=== PATIENT | male | born 1965 | race Caucasian/White ===

== ENCOUNTER 2017-09-27 00:41 | Inpatient (IN) | payer BC ==
[~2017-09-27] VITALS: Ht 167.6 cm; Wt 82.2 kg
[~2017-09-27 00:41] MED LIST: AMLODIPINE BESYL5 MG PO; ASPIR 8181 M1 PO; ATORVASTATIN CA40 MG PO; BENTYL10 MG PO; CEFDINIR300 MG PO; CITALOPRAM HBR20 MG PO; EXFORGE 10/11 TABLET PO; GLUCOSAMINE CH1 EAC2 PO; HYDROCHLOROTH12.5 M3 PO; MOTRIN600 MG PO; NORCO 7.5/321 TABLET PO; NORTRIPTYLINE H10 MG PO; OMEPRAZOLE40 M1 PO; PERCOCET 10/1 TABLET PO; PREDNISONE20 MG PO; RISPERIDONE0.5 MG PO; TELMISARTAN40 MG PO; VENTOLIN HFA18 GM IH
[2017-09-27 01:01] LABS: APPEARANCE SL.HAZY ((CLEAR)); BILIRUBIN NEGATIVE; BLOOD NEGATIVE; COLOR YELLOW ((YELLOW)); GLUCOSE (STRIP) NEGATIVE; KETONES NEGATIVE; LEUKOCYTES NEGATIVE; NITRITE NEGATIVE; PROTEIN (STRIP) 30; SPECIFIC GRAVITY 1.036 (1.000-1.030); UROBILINOGEN 0.2 MG/DL (0.2-1.0)
[2017-09-27 01:14] LABS: HEMATOCRIT 43.4 % (38.0-50.0); HEMOGLOBIN 14.5 G/DL (12.5-16.6); MCH 29.2 PG (29.0-34.0); MCHC 33.4 G/DL (30.0-36.0); MCV 87.3 FL (86-99); PLATELET COUNT 262 K/uL (156-360); RBC DIS.WIDTH-CV 13.1 % (11.8-14.6); RBC DIS.WIDTH-SD 41.8 % (39-53); RED BLOOD COUNT 4.97 M/uL (4.00-5.50)
[2017-09-27 01:16] LABS: BACTERIA RARE /HPF; EPITHELIAL CELLS RARE /HPF; MUCUS 3+ /LPF; UCUL ADDED? NO; WHITE BLOOD CELLS 0-5 /HPF (0-5)
[2017-09-27 01:25] LABS: ALBUMIN 4.1 g/dL (3.2-4.8); CHLORIDE 102 mEq/L (99-109); POTASSIUM 3.8 mEq/L (3.7-5.4); SODIUM 140 mEq/L (136-147)
[2017-09-27 01:28] LABS: GLUCOSE 144 mg/dL (70-99); TOTAL PROTEIN 7.6 g/dL (6.4-8.3)
[2017-09-27 01:30] LABS: TOTAL BILIRUBIN 0.7 mg/dL (0.0-1.0)
[2017-09-27 01:31] LABS: ALKALINE PHOSPHATASE 105 IU/L (3-129); GFR ESTIMATE (CALCULATED) > 59 mL/min/ (58.99-99999)
[2017-09-27 01:32] LABS: UREA NITROGEN (BUN) 21 mg/dL (9-23)
[2017-09-27 01:33] LABS: AST (GOT) 20 IU/L (2-34)
[2017-09-27 01:34] LABS: ALT (GPT) 35 IU/L (3-49)
[2017-09-27 02:05] LABS: LIPASE 9 U/L (1.0-51.0)
[2017-09-27 05:23] VITALS: BP 154/95
[2017-09-27 07:34] VITALS: BP 139/89
[2017-09-27 11:21] VITALS: BP 131/89
[2017-09-27 15:19] VITALS: BP 123/79
[2017-09-27 19:22] VITALS: BP 114/68
[2017-09-28 08:14] VITALS: BP 126/73
[2017-09-28 08:42] LABS: HEMATOCRIT 35.1 % (38.0-50.0); HEMOGLOBIN 11.3 G/DL (12.5-16.6); MCH 28.3 PG (29.0-34.0); MCHC 32.2 G/DL (30.0-36.0); MCV 87.8 FL (86-99); RBC DIS.WIDTH-CV 12.8 % (11.8-14.6); RBC DIS.WIDTH-SD 41.8 % (39-53); WHITE BLOOD COUNT 6.3 K/uL (4.1-10.2)
[2017-09-28 09:00] LABS: PLAT.SUFFICIENCY ADEQUATE
[2017-09-28 09:02] LABS: PLATELET COUNT 170 K/uL (156-360)
[2017-09-28 09:08] LABS: CHLORIDE 104 MEQ/L (99-109); SODIUM 139 MEQ/L (136-147)
[2017-09-28 09:13] LABS: CREATININE 0.7 MG/DL (0.6-1.3); GFR ESTIMATE (CALCULATED) > 59 mL/min/ (58.99-99999); GLUCOSE 88 mg/dL (70-99); UREA NITROGEN (BUN) 15 mg/dL (9-23)
[2017-09-28 15:56] VITALS: BP 129/79
[2017-09-28 23:27] VITALS: BP 115/73
[2017-09-29 07:40] VITALS: BP 133/80
[2017-09-29 15:55] VITALS: BP 162/89
[2017-09-29 23:08] VITALS: BP 143/87
[2017-09-30 07:06] VITALS: BP 160/92
[2017-09-30 07:28] LABS: BASOPHIL (%) 0.4 % (0-1); EOSINOPHIL (%) 0.5 % (0-5); HEMATOCRIT 34.4 % (38.0-50.0); HEMOGLOBIN 11.4 G/DL (12.5-16.6); IMMATURE GRANULOCYTE (%) 0.4 % (0.0-0.7); LYMPHOCYTE (%) 13.7 % (15-42); LYMPHOCYTE COUNT 1.1 K/uL (1.0-2.8); MCHC 33.1 G/DL (30.0-36.0); MCV 84.5 FL (86-99); MONOCYTE (%) 9.5 % (3-12); MONOCYTE COUNT 0.8 K/uL (0-0.8); NEUTROPHIL (%) 75.5 % (45-76); RBC DIS.WIDTH-CV 11.9 % (11.8-14.6); RBC DIS.WIDTH-SD 36.4 % (39-53); RED BLOOD COUNT 4.07 M/uL (4.00-5.50); WHITE BLOOD COUNT 7.9 K/uL (4.1-10.2)
[2017-09-30 07:30] LABS: PLATELET COUNT 226 K/uL (156-360)
[2017-09-30 07:46] LABS: ALBUMIN 3.5 G/DL (3.2-4.8); ALKALINE PHOSPHATASE 91 IU/L (3-129); ALT (GPT) 13 IU/L (3-49); AST (GOT) 12 IU/L (2-34); CHLORIDE 104 MEQ/L (99-109); CREATININE 0.6 MG/DL (0.6-1.3); GFR ESTIMATE (CALCULATED) > 59 mL/min/ (58.99-99999); GLUCOSE 68 mg/dL (70-99); PHOSPHORUS 3.3 mg/dL (2.5-4.9); POTASSIUM 3.8 MEQ/L (3.7-5.4); SODIUM 140 MEQ/L (136-147); TOTAL BILIRUBIN 0.8 MG/DL (0.0-1.0); TOTAL PROTEIN 6.1 G/DL (6.4-8.3); UREA NITROGEN (BUN) 13 mg/dL (9-23)
[2017-09-30 11:57] VITALS: BP 128/77
[2017-09-30 15:15] VITALS: BP 134/80
[2017-09-30 19:26] VITALS: BP 129/80
[2017-10-01 00:01] VITALS: BP 137/75
[2017-10-01 07:12] VITALS: BP 139/86
[2017-10-01 10:14] LABS: BASOPHIL (%) 0.4 % (0-1); EOSINOPHIL (%) 0.5 % (0-5); HEMATOCRIT 35.1 % (38.0-50.0); HEMOGLOBIN 11.7 G/DL (12.5-16.6); IMMATURE GRANULOCYTE (%) 0.7 % (0.0-0.7); LYMPHOCYTE (%) 16.2 % (15-42); LYMPHOCYTE COUNT 1.2 K/uL (1.0-2.8); MCH 28.3 PG (29.0-34.0); MCHC 33.3 G/DL (30.0-36.0); MCV 84.8 FL (86-99); MONOCYTE (%) 5.9 % (3-12); MONOCYTE COUNT 0.4 K/uL (0-0.8); NEUTROPHIL (%) 76.3 % (45-76); NEUTROPHIL COUNT 5.7 K/uL (1.8-6.4); PLATELET COUNT 271 K/uL (156-360); RBC DIS.WIDTH-CV 12.2 % (11.8-14.6); RBC DIS.WIDTH-SD 37.5 % (39-53); RED BLOOD COUNT 4.14 M/uL (4.00-5.50); WHITE BLOOD COUNT 7.4 K/uL (4.1-10.2)
[2017-10-01 10:43] LABS: CHLORIDE 101 MEQ/L (99-109); CREATININE 0.7 MG/DL (0.6-1.3); GFR ESTIMATE (CALCULATED) > 59 mL/min/ (58.99-99999); POTASSIUM 3.3 MEQ/L (3.7-5.4); SODIUM 137 MEQ/L (136-147); UREA NITROGEN (BUN) 11 mg/dL (9-23)
[2017-10-01 10:47] LABS: GLUCOSE 197 mg/dL (70-99)
[2017-10-01 15:42] VITALS: BP 127/83
[2017-10-01 23:28] VITALS: BP 134/83
[2017-10-02 07:53] VITALS: BP 128/78
[2017-10-02 15:41] VITALS: BP 122/77; BP 137/97
[2017-10-02 23:37] VITALS: BP 117/76
[2017-10-03 07:39] VITALS: BP 127/85
[2017-10-03 14:51] VITALS: BP 119/81
[2017-10-03 23:14] VITALS: BP 131/83
[2017-10-04 07:45] VITALS: BP 113/75
[2017-10-04] MEDS ORDERED: NORCO 5/3251 TABLET PO (08:44)
[2017-10-04] MEDS ORDERED: COLACE100 MG PO (08:44)
== END 2017-10-04 14:01 | disposition home or self-care (01) | DRG 331 ==
LOC: EME 00:41 → 3EAST 02:35 → EDOF 02:35 → ENRESERV 02:53 → 3EAST 05:11
PROVIDERS: Physician Assistant; Physician Assistant Surgical; Surgery
PROC: 0DS84ZZ Reposition Small Intestine, Percutaneous Endoscopic Approach (ICD-10-PCS; principal; 2017-09-30)
DX: K56.2 Volvulus (principal); K56.690 Other partial intestinal obstruction; I10 Essential (primary) hypertension; E78.5 Hyperlipidemia, unspecified; K21.9 Gastro-esophageal reflux disease without esophagitis; G47.30 Sleep apnea, unspecified; F31.9 Bipolar disorder, unspecified; Z79.82 Long term (current) use of aspirin
CPT/HCPCS: 71010; 74000; 74020; 74176; 74250; 80048; 80053; 81003; 82948; 83690; 83735; 84100; 84443; 85025; 85027; 94760; 94799; 99281; 99285; J0330; J1170; J2060; J2250; J2270; J2405; J2710; J3010; J7030; J7120; S0028; S0074